=== PATIENT | male | born 1985 | race African-American/Black ===

== ENCOUNTER 2020-06-12 08:12 | Emergency (ER) | payer SELFPAY ==
[~2020-06-12] VITALS: Ht 185.4 cm; Wt 82.0 kg
[2020-06-12] MEDS ORDERED: IBUPROFEN 600MG TABLET PO ONE (08:45)
[2020-06-12] MEDS ORDERED: METOCLOPRAMIDE HCL 10MG TABLET PO ONE (09:00)
[2020-06-12] MEDS ORDERED: DIPHENHYDRAMINE 25MG CAPSULE PO ONE (09:00)
[2020-06-12] MEDS ORDERED: ACETAMINOPHEN 325MG TABLET PO ONE (09:00)
[2020-06-12 09:49] VITALS: BP 110/68
== END 2020-06-12 09:50 | disposition home or self-care (01) ==
LOC: ER 08:12
DX: S09.8XXA Other specified injuries of head, initial encounter (principal); H57.89 Other specified disorders of eye and adnexa; W20.8XXA Other cause of strike by thrown, projected or falling object, initial encounter; Y93.89 Activity, other specified; Y92.89 Other specified places as the place of occurrence of the external cause; Y99.0 Civilian activity done for income or pay
CPT/HCPCS: 70450; 99284; J8597; Q0163